=== PATIENT | female | born 1990 | race Caucasian/White ===

== ENCOUNTER 2023-04-12 09:49 | Emergency (ER) | payer MEDICAID ==
[~2023-04-12] VITALS: Ht 170.2 cm; Wt 63.5 kg
[2023-04-12 09:55] VITALS: BP_SYST 121; PULSE 96; RESP 16; TEMP 97.6; O2SAT 97
[2023-04-12 10:35] LABS: BILIRUBIN,URINE NEGATIVE (NEGATIVE); BLOOD, URINE NEGATIVE (NEGATIVE); CLARITY/URINE CLEAR (CLEAR); COLOR,URINE YELLOW (YELLOW); GLUCOSE,URINE NEGATIVE (NEGATIVE); KETONES,URINE NEGATIVE (NEGATIVE); LEUKOCYTE ESTERASE ,URINE 2+ (NEGATIVE); NITRITE, URINE NEGATIVE (NEGATIVE); PROTEIN URINE NEGATIVE (NEGATIVE); UROBILINOGEN,URINE 0.2 (0.2-1.0)
[2023-04-12 10:40] LABS: BASOPHILS % (AUTO) 0.5 % (0.0-2.0); EOSINOPHILS % (AUTO) 0.6 % (0.0-4.0); HEMATOCRIT 35.8 % (36-48); HEMOGLOBIN 11.6 g/dL (12.0-16.0); LYMPHOCYTES # (AUTO) 1.4 K/uL (1.0-5.5); LYMPHOCYTES % (AUTO) 21.7 % (20.5-51.5); MEAN CORPUSCULAR HEMOGLOBIN 27 pg (27-31); MEAN CORPUSCULAR HGB CONC 33 % (32-36); MEAN CORPUSCULAR VOLUME 84 fL (79.0-98.0); MONOCYTES # (AUTO) 0.6 K/uL (0.0-1.0); MONOCYTES % (AUTO) 8.4 % (1.7-9.3); NEUTROPHILS # (AUTO) 4.5 K/uL (1.8-7.7); NEUTROPHILS % (AUTO) 68.8 % (40.0-70.0); PLATELET COUNT (AUTO) 257 K/uL (130-430); RED BLOOD CELL COUNT(AUTO) 4.26 MIL/uL (4.2-6.2); RED CELL DISTRIBUTION WIDTH 14.7 % (9.0-15.0); WHITE BLOOD COUNT (AUTO) 6.6 K/uL (4.8-10.8)
[2023-04-12 10:41] LABS: BACTERIA,URINE FEW /HPF (None Seen); CALCIUM OXALATE CRYSTALS,UR None Seen /HPF (None Seen); CALCIUM PHOSPHATE CRYSTALS,UR None Seen /HPF (None Seen); FINE GRANULAR CASTS,URINE None Seen /LPF (None Seen); HYALINE CASTS, URINE None Seen /LPF (None Seen); OTHER CRYSTALS,URINE None Seen /HPF (None Seen); RBC,URINE 0-3 /HPF (0-3); TRICHOMONAS,URINE None Seen /HPF (None Seen); TRIPLE PHOSPHATE CRYSTAL,UR None Seen /HPF (None Seen); URIC ACID CRYSTALS,URINE None Seen /HPF (None Seen); URINE AMORPHOUS PHOSPHATES None Seen /HPF (None Seen); URINE AMORPHOUS URATE None Seen /HPF (None Seen); YEAST,URINE None Seen /HPF (None Seen)
[2023-04-12 10:42] LABS: COARSE GRANULAR CASTS,URINE None Seen /LPF (None Seen); MUCUS,URINE 1+ /LPF (None Seen); OTHER CASTS, URINE None Seen /LPF (None Seen); WAXY CASTS,URINE None Seen /LPF (None Seen)
[2023-04-12 10:51] LABS: BARBITURATE, URINE NEGATIVE (NEG <=200); METHAMPHETAMINES SCREEN,URINE POSITIVE (NEG <=500); URINE AMPHETAMINE POSITIVE (NEG <=500)
[2023-04-12 10:52] LABS: BENZODIAZEPINE, URINE NEGATIVE (NEG <=150); CANNABINOID, URINE NEGATIVE (NEG <=50); COCAINE, URINE NEGATIVE (NEG <=150); OPIATE, URINE NEGATIVE (NEG <=100); PHENCYCLIDINE SCREEN,URINE NEGATIVE (NEG <=25); UR TRICYCLIC ANTIDEPRESSANTS NEGATIVE (NEG <=300); URINE METHADONE NEGATIVE (NEG <=200); URINE OXYCODONE SCREEN NEGATIVE (NEG <=100); URINE PROPOXYPHENE SCREEN NEGATIVE (NEG <=300)
[2023-04-12 10:53] LABS: CALCIUM 8.8 mg/dL (8.4-11.0); CREATININE 0.49 mg/dL (0.55-1.30); POTASSIUM 3.7 mmol/L (3.5-5.1)
[2023-04-12 10:58] LABS: ALBUMIN 3.2 g/dL (3.4-4.8); TOTAL BILIRUBIN 0.4 mg/dL (0.0-1.0); TOTAL PROTEIN, SERUM 6.8 g/dL (6.4-8.3)
[2023-04-12 12:04] VITALS: BP_SYST 129; PULSE 86; RESP 18; TEMP 98.1; O2SAT 98
== END 2023-04-12 12:06 | disposition home or self-care (01) ==
LOC: SED 09:49
DX: F19.10 Other psychoactive substance abuse, uncomplicated (principal); R51.9 Headache, unspecified; Z79.899 Other long term (current) drug therapy
CPT/HCPCS: 36415; 80053; 80307; 81000; 81001; 81015; 85025; 99283

== ENCOUNTER 2023-09-19 23:14 | Emergency (ER) | payer MEDICAID ==
[~2023-09-19] VITALS: Ht 170.2 cm; Wt 75.3 kg
[2023-09-19 23:31] VITALS: BP_SYST 154; PULSE 105; RESP 16; TEMP 97.6; O2SAT 99
[2023-09-20] MEDS: LIDOCAINE 1% 10 MG/ML, 20 ML MDV INJ ONE (02:07)
[2023-09-20 02:31] VITALS: BP_SYST 140; PULSE 95; RESP 20; TEMP 97.6; O2SAT 98
== END 2023-09-20 02:31 | disposition home or self-care (01) ==
LOC: SED 23:14
DX: L02.412 Cutaneous abscess of left axilla (principal); Z79.899 Other long term (current) drug therapy
CPT/HCPCS: 99282; J2001

== ENCOUNTER 2023-09-30 08:37 | Emergency (ER) | payer MEDICAID ==
[~2023-09-30] VITALS: Ht 170.2 cm; Wt 78.5 kg
[2023-09-30 08:37] VITALS: BP_SYST 136; PULSE 96; RESP 20; TEMP 97.6; O2SAT 100
[2023-09-30] MEDS: LR 500 ML IV ONE (09:23)
[2023-09-30 09:33] VITALS: BP_SYST 104; PULSE 91; RESP 18; O2SAT 99
== END 2023-09-30 09:40 | disposition short-term general hospital (02) ==
LOC: SED 08:37
DX: O09.893 Supervision of other high risk pregnancies, third trimester (principal); O42.913 Preterm premature rupture of membranes, unspecified as to length of time between rupture and onset of labor, third trimester; Z3A.32 32 weeks gestation of pregnancy
CPT/HCPCS: 76815; 99291

== ENCOUNTER 2024-03-19 22:02 | Emergency (ER) | payer MEDICAID ==
[~2024-03-19] VITALS: Ht 170.2 cm; Wt 67.1 kg
[2024-03-19 22:10] VITALS: BP_SYST 122; PULSE 101; RESP 21; TEMP 97.2; O2SAT 99
[2024-03-19] MEDS ORDERED: CEPH-548 PO (22:24)
[2024-03-19] MEDS ORDERED: IBUP-1969 PO (22:24)
[2024-03-19] MEDS: LIDOCAINE 1% 10 MG/ML, 20 ML MDV ID ONE (22:24)
[2024-03-19 22:42] VITALS: BP_SYST 122; PULSE 101; RESP 21; TEMP 97.2; O2SAT 99
== END 2024-03-19 22:30 | disposition home or self-care (01) ==
LOC: SED 22:02
DX: L02.411 Cutaneous abscess of right axilla (principal)
CPT/HCPCS: 99283; 10060; J2003